=== PATIENT | female | born 1955 | race Caucasian/White ===

== ENCOUNTER 2025-01-26 10:18 | Outpatient (CLI) | payer MEDICARE | END 2025-01-26 10:19 | disposition home or self-care (01) | LOC: SCSMRI 10:18 | PROVIDERS: ATTEND Orthopaedic Surgery | DX: M23.92 Unspecified internal derangement of left knee (principal); M71.22 Synovial cyst of popliteal space [Baker], left knee; M94.262 Chondromalacia, left knee; S83.282A Other tear of lateral meniscus, current injury, left knee, initial encounter; S83.242A Other tear of medial meniscus, current injury, left knee, initial encounter ==

== ENCOUNTER 2025-02-14 08:17 | Observation (INO) | payer MEDICARE ==
[2025-02-07 13:27] VITALS: BMI 25.2
[2025-02-14] MEDS ORDERED: Tranexamic Acid 1,000 MG/10 ML VIAL ONE ×2 (08:54→12:27)
[2025-02-14] MEDS ORDERED: Vancomycin 1 GM/200 ML (FROZEN) BAG ONE (08:54)
[2025-02-14] MEDS ORDERED: Ropivacaine 0.5% HCl/PF (150 MG/30 ML VIAL) ONE (08:56)
[2025-02-14] MEDS ORDERED: Bupivacaine 0.25% HCL 30 ML VIAL ONE (09:32)
[2025-02-14] MEDS ORDERED: CEFAZOLIN 2 GM VIAL ONE (09:33)
[2025-02-14] MEDS ORDERED: PROPOFOL 20 ML ONE (09:40)
[2025-02-14] MEDS ORDERED: Ropivacaine 0.2% 550 ML 550 ML NERVE BLCK SCH (09:45)
[2025-02-14] MEDS ORDERED: HYDROcodone/Acetaminophen 10/325 mg Tablet PO PRN (09:45)
[2025-02-14] MEDS ORDERED: fentaNYL PF 100 MCG/2 ML SYRINGE ONE ×4 (10:22→14:39)
[2025-02-14] MEDS ORDERED: Ondansetron PF 4 MG/2 ML Vial ONE ×2 (10:57→11:59)
[2025-02-14] MEDS ORDERED: Ondansetron PF 4 MG/2 ML Vial IVP PRN (11:33)
[2025-02-14] MEDS ORDERED: diphenhydrAMINE 25 MG CAP PO PRN (11:33)
[2025-02-14] MEDS ORDERED: HYDROmorphone 0.5 MG/0.5 ML SYRINGE ONE (14:40)
[2025-02-14 15:34] VITALS: BMI 25.2
[2025-02-14] MEDS: Ketorolac Tromethamine 30 MG (1 mL) VIAL IVP SCH (17:47)
[2025-02-14] MEDS: Vancomycin 1 GM in Premix 1 BAG IVPB SCH (19:18)
[2025-02-14] MEDS: Ferrous Gluconate 324 MG TAB PO SCH (19:19)
[2025-02-14] MEDS: Bupropion 150 MG SR.TAB PO SCH (19:19)
[2025-02-14] MEDS: Senokot S 8.6-50 MG TAB PO SCH (19:19)
[2025-02-14] MEDS: Aspirin 81 mg Enteric Coated Tablet PO SCH (19:19)
[2025-02-14] MEDS: HYDROcodone/Acetaminophen 10/325 mg Tablet PO PRN (19:21)
[2025-02-14] MEDS: Ondansetron PF 4 MG/2 ML Vial IVP PRN (19:21)
[2025-02-15] MEDS: Acetaminophen 325 MG TAB PO PRN (04:41)
[2025-02-15 05:48] LABS: Hematocrit 32.5 % (36.0-47.0); Hemoglobin 10.0 g/dL (12.0-16.0); Mean Corpuscular Hemoglobin 28.7 pg (27.0-31.0); Mean Corpuscular Volume 93.1 fL (78.0-98.0); Platelet Count 198 10x3/uL (130-400); Red Blood Cell (RBC) Count 3.49 mill/uL (4.20-5.40); White Blood Cell (WBC) Count 8.93 10x3/uL (4.8-10.8)
[2025-02-15 07:47] VITALS: BP 136/78; TEMP 98
[2025-02-15] MEDS: Cholecalciferol 1,000 UNITS (25 MCG) TAB PO SCH (08:25)
[2025-02-15] MEDS: DULoxetine 30 MG CAP PO SCH (08:25)
[2025-02-15] MEDS: Multivitamin W/ Minerals 1 TAB PO SCH (08:25)
[2025-02-15] MEDS ORDERED: Non-Formulary Item 1 EACH (Ferrous Sulfate [Iron] 142 MG Tablet.Er) PO SCH (09:00)
[2025-02-15] MEDS ORDERED: Multivitamin W/ Minerals 1 TAB PO SCH (09:00)
== END 2025-02-15 14:30 | disposition home or self-care (01) ==
LOC: SDC 08:17 → SURG A 16:07
PROVIDERS: ADMIT Orthopaedic Surgery; ATTEND Orthopaedic Surgery
PROC: 0QUF0JZ Supplement Left Patella with Synthetic Substitute, Open Approach (ICD-10-PCS; principal; 2025-02-14)
DX: M17.12 Unilateral primary osteoarthritis, left knee (principal); M94.262 Chondromalacia, left knee
CPT/HCPCS: 0055T; 27447; 64448; 36415; 85027; A4306; C1713; C1776; C1889; J0665; J1171; J1885; J2250; J2550; J2704; J2795; J3373